=== PATIENT | male | born 1960 | race African-American/Black ===

== ENCOUNTER 2017-09-09 10:03 | Emergency (ER) | payer OTHER ==
[~2017-09-09] VITALS: Ht 180.3 cm; Wt 106.8 kg
[~2017-09-09 10:03] MED LIST: HIGH BLOOD PRESSURE PO; LEVE500T53 PO; PANT40TA25 PO; QUET200T PO
[2017-09-09] MEDS ORDERED: SODIUM CHLORIDE 0.9% 1,000 ML IV ONE (10:30)
[2017-09-09 10:52] LABS: GLUCOSE,POINT OF CARE 123 MG/DL (70-110)
[2017-09-09 12:12] LABS: BASOPHILS # (AUTO) 0.03 K/uL (0.00-0.20); BASOPHILS % (AUTO) 0.4 % (0.0-2.0); EOSINOPHILS # (AUTO) 0.36 K/uL (0.00-0.70); HEMATOCRIT 35.2 % (41-53); HEMOGLOBIN 11.7 g/dL (13.5-17.5); LYMPHOCYTES # (AUTO) 0.9 K/uL (1.0-4.8); LYMPHOCYTES % (AUTO) 13.1 % (22.0-44.0); MEAN CORPUSCULAR HEMOGLOBIN 26.3 pg (26.0-34.0); MEAN CORPUSCULAR HGB CONC 33.1 G/dL (31.0-37.0); MEAN CORPUSCULAR VOLUME 79 fL (80-100); MONOCYTES # (AUTO) 0.2 K/uL (0.1-1.0); MONOCYTES % (AUTO) 2.7 % (2.0-9.0); NEUTROPHILS # (AUTO) 5.2 K/uL (1.8-7.7); NEUTROPHILS % (AUTO) 78.4 % (40.0-70.0); RED BLOOD CELL COUNT(AUTO) 4.43 MIL/uL (4.50-5.90); RED CELL DISTRIBUTION WIDTH 19.2 % (11.5-14.5); WHITE BLOOD COUNT (AUTO) 6.6 K/uL (4.5-11.0)
[2017-09-09 12:15] LABS: ORIG DRAW (USER) PTC
[2017-09-09 12:20] LABS: ANION GAP 7 mmol/L (8-16); CALCIUM, TOTAL 8.9 mg/dL (8.8-10.5); CARBON DIOXIDE 26 mmol/L (22-29); CHLORIDE 102 mmol/L (98-107); CREATININE 0.82 mg/dL (0.60-1.30); GLOMERULAR FILTR. RATE CALC > 60 mL/min (>60); POTASSIUM 4.6 mmol/L (3.5-5.1); SODIUM SERUM 135 mmol/L (136-145); UREA NITROGEN, BLOOD 14 mg/dL (7-18)
[2017-09-09 12:26] LABS: ALANINE AMINOTRANSFERASE 11 U/L (12-78); ALBUMIN 3.5 g/dL (3.4-5.0); ASPARTATE AMINOTRANSFERASE 50 U/L (15-37); BILIRUBIN,TOTAL 0.1 mg/dL (0.1-1.0); TOTAL PROTEIN, SERUM 7.2 g/dL (6.4-8.2)
[2017-09-09 12:30] LABS: PLATELET COUNT (AUTO) 263 K/uL (150-450); RBC MORPHOLOGY COMMENT ABNORMAL RBC MORPH
[2017-09-09] MEDS ORDERED: LevETIRAcetam 250 MG TABLET PO ONE (13:45)
[2017-09-09] MEDS ORDERED: MAGNESIUM CHLORIDE 64 MG ER TABLET PO ONE (14:15)
[2017-09-09] MEDS ORDERED: ACETAMINOPHEN 325 MG TABLET PO ONE (14:15)
[2017-09-09 14:32] VITALS: BP 151/101
== END 2017-09-09 15:01 | disposition home or self-care (01) ==
LOC: EMS 10:03
DX: G40.909 Epilepsy, unspecified, not intractable, without status epilepticus (principal); I10 Essential (primary) hypertension; K21.9 Gastro-esophageal reflux disease without esophagitis; Z88.8 Allergy status to other drugs, medicaments and biological substances
CPT/HCPCS: 36415; 70450; 80053; 82948; 82962; 83690; 83735; 84484; 85025; 93005; 96360; 99285; J7030

== ENCOUNTER 2017-12-22 13:20 | Emergency (ER) | payer OTHER ==
[~2017-12-22] VITALS: Ht 175.3 cm; Wt 106.0 kg
[2017-12-22 14:39] LABS: BASOPHILS % (AUTO) 0.6 % (0.0-2.0); HEMATOCRIT 40.4 % (41-53); HEMOGLOBIN 13.5 g/dL (13.5-17.5); LYMPHOCYTES # (AUTO) 1.2 K/uL (1.0-4.8); LYMPHOCYTES % (AUTO) 21.4 % (22.0-44.0); MEAN CORPUSCULAR HEMOGLOBIN 26.5 pg (26.0-34.0); MEAN CORPUSCULAR HGB CONC 33.5 G/dL (31.0-37.0); MEAN CORPUSCULAR VOLUME 79 fL (80-100); MONOCYTES # (AUTO) 0.3 K/uL (0.1-1.0); MONOCYTES % (AUTO) 6.1 % (2.0-9.0); NEUTROPHILS # (AUTO) 3.6 K/uL (1.8-7.7); NEUTROPHILS % (AUTO) 64.9 % (40.0-70.0); PLATELET COUNT (AUTO) 304 K/uL (150-450); RED CELL DISTRIBUTION WIDTH 14.8 % (11.5-14.5)
[2017-12-22 14:48] LABS: ANION GAP 8 mmol/L (8-16); CALCIUM, TOTAL 9.1 mg/dL (8.8-10.5); CARBON DIOXIDE 29 mmol/L (22-29); CHLORIDE 100 mmol/L (98-107); CREATININE 1.34 mg/dL (0.60-1.30); GLOMERULAR FILTR. RATE CALC > 60 mL/min (>60); GLUCOSE,RANDOM 111 mg/dL (70-110); POTASSIUM 3.8 mmol/L (3.5-5.1); SODIUM SERUM 137 mmol/L (136-145); UREA NITROGEN, BLOOD 17 mg/dL (7-18)
[2017-12-22 14:54] LABS: ALANINE AMINOTRANSFERASE 13 U/L (12-78); ALBUMIN 3.8 g/dL (3.4-5.0); ALKALINE PHOSPHATASE 85 U/L (46-116); ASPARTATE AMINOTRANSFERASE 43 U/L (15-37); BILIRUBIN,TOTAL 0.2 mg/dL (0.1-1.0); LIPASE 79 U/L (73-393); TOTAL PROTEIN, SERUM 7.9 g/dL (6.4-8.2)
[2017-12-22] MEDS ORDERED: ALBUTEROL SULFATE 2.5 MG/0.5 ML NEB SOLUTION NEB ONE (15:00)
[2017-12-22] MEDS ORDERED: IPRATROPIUM BROMIDE 0.5 MG/2.5 ML NEB SOLUTION NEB ONE (15:00)
[2017-12-22 15:01] LABS: PLATELET MORPHOLOGY COMMENT NORMAL
[2017-12-22 16:01] LABS: INFLUENZA TYPE A NEGATIVE FOR TYPE A (NEGATIVE); INFLUENZA TYPE B NEGATIVE FOR TYPE B (NEGATIVE)
[2017-12-22] MEDS ORDERED: LIDOCAINE HCL/PF 1% 2 ML VIAL IM ONE (16:15)
[2017-12-22] MEDS ORDERED: CefTRIAXone SODIUM 1 GM/VIAL IM ONE (16:15)
[2017-12-22 16:56] VITALS: BP 124/76
== END 2017-12-22 16:59 | disposition home or self-care (01) ==
LOC: EMS 13:21
DX: J32.9 Chronic sinusitis, unspecified (principal); J40 Bronchitis, not specified as acute or chronic; J02.9 Acute pharyngitis, unspecified; K21.9 Gastro-esophageal reflux disease without esophagitis; I10 Essential (primary) hypertension; Z88.8 Allergy status to other drugs, medicaments and biological substances
CPT/HCPCS: 71046; 80053; 83690; 85025; 87804; 94640; 96372; 99285; J0696; J3490; J7613

== ENCOUNTER 2018-01-16 18:44 | Emergency (ER) | payer OTHER ==
[~2018-01-16] VITALS: Ht 180.3 cm; Wt 105.0 kg
[2018-01-16] MEDS ORDERED: ATOR20TA65 PO (18:58)
[2018-01-16] MEDS ORDERED: ASPI-1182 PO (18:58)
[2018-01-16] MEDS ORDERED: ALBU8HFA IH (18:58)
[2018-01-16] MEDS ORDERED: SPIR25TA4 PO (18:58)
[2018-01-16] MEDS ORDERED: FLUT16H NASAL (18:58)
[2018-01-16] MEDS ORDERED: TRAZ150 PO (18:58)
[2018-01-16] MEDS ORDERED: ALBUTEROL SULFATE 2.5 MG/0.5 ML NEB SOLUTION NEB ONE (19:15)
[2018-01-16] MEDS ORDERED: IPRATROPIUM BROMIDE 0.5 MG/2.5 ML NEB SOLUTION NEB ONE (19:15)
[2018-01-16] MEDS ORDERED: 0.9% SODIUM CHLORIDE 5 ML NEB SOLUTION NEB ONE (19:17)
[2018-01-16 19:37] LABS: INFLUENZA TYPE A NEGATIVE FOR TYPE A (NEGATIVE); INFLUENZA TYPE B NEGATIVE FOR TYPE B (NEGATIVE)
[2018-01-16 20:24] LABS: BASOPHILS % (AUTO) 0.5 % (0.0-2.0); EOSINOPHILS % (AUTO) 5.5 % (1.0-6.0); HEMOGLOBIN 12.6 g/dL (13.5-17.5); LYMPHOCYTES # (AUTO) 2.5 K/uL (1.0-4.8); LYMPHOCYTES % (AUTO) 31.4 % (22.0-44.0); MEAN CORPUSCULAR HEMOGLOBIN 26.8 pg (26.0-34.0); MEAN CORPUSCULAR HGB CONC 34.1 G/dL (31.0-37.0); MEAN CORPUSCULAR VOLUME 79 fL (80-100); MONOCYTES # (AUTO) 0.5 K/uL (0.1-1.0); MONOCYTES % (AUTO) 5.9 % (2.0-9.0); NEUTROPHILS # (AUTO) 4.6 K/uL (1.8-7.7); NEUTROPHILS % (AUTO) 56.7 % (40.0-70.0); PLATELET COUNT (AUTO) 294 K/uL (150-450); RED CELL DISTRIBUTION WIDTH 14.7 % (11.5-14.5)
[2018-01-16 20:32] LABS: ANION GAP 7 mmol/L (8-16); CARBON DIOXIDE 31 mmol/L (22-29); CHLORIDE 96 mmol/L (98-107); CREATININE 1.17 mg/dL (0.60-1.30); GLOMERULAR FILTR. RATE CALC > 60 mL/min (>60); GLUCOSE,RANDOM 116 mg/dL (70-110); POTASSIUM 3.5 mmol/L (3.5-5.1); SODIUM SERUM 134 mmol/L (136-145); UREA NITROGEN, BLOOD 20 mg/dL (7-18)
[2018-01-16 20:38] LABS: ALANINE AMINOTRANSFERASE 12 U/L (12-78); ALBUMIN 3.9 g/dL (3.4-5.0); ALKALINE PHOSPHATASE 83 U/L (46-116); ASPARTATE AMINOTRANSFERASE 45 U/L (15-37); BILIRUBIN,TOTAL 0.2 mg/dL (0.1-1.0); TOTAL PROTEIN, SERUM 7.6 g/dL (6.4-8.2)
[2018-01-16 20:42] LABS: B-TYPE NATRIURETIC PEPTIDE < 5 pg/mL (0-100)
[2018-01-16 21:15] VITALS: BP 117/80
[2018-01-16] MEDS ORDERED: ALBUTEROL SULFATE HFA 90 MCG/PUFF 8 GM INHALER IH ONE (21:30)
== END 2018-01-16 21:15 | disposition home or self-care (01) ==
LOC: EMS 18:45
DX: J45.901 Unspecified asthma with (acute) exacerbation (principal); J02.9 Acute pharyngitis, unspecified; J34.89 Other specified disorders of nose and nasal sinuses; K21.9 Gastro-esophageal reflux disease without esophagitis; I10 Essential (primary) hypertension; Z88.8 Allergy status to other drugs, medicaments and biological substances
CPT/HCPCS: 36415; 71046; 80053; 83880; 85025; 87804; 93005; 94640; 99285; J7613; J3535

== ENCOUNTER 2019-09-30 19:27 | Inpatient (IN) | payer OTHER ==
[~2019-09-30] VITALS: Ht 180.3 cm; Wt 107.0 kg
[~2019-09-30 19:27] MED LIST changes: +ALBU8HFA IH; +ASPI-1182 PO; +ATOR20TA65 PO; +FLUT16H NASAL; -HIGH BLOOD PRESSURE PO; +SPIR25TA6 PO; +TRAZ150 PO
[2019-09-30] MEDS ORDERED: NALOXONE HCL 1 MG/ML 2 ML SYG ONE (19:39)
[2019-09-30] MEDS ORDERED: LOSA1TAB40 PO (19:57)
[2019-09-30] MEDS ORDERED: ATEN50TA PO (19:57)
[2019-09-30] MEDS ORDERED: TAMS-13 PO (19:57)
[2019-09-30] MEDS ORDERED: LORA10TA7 PO (19:57)
[2019-09-30] MEDS ORDERED: MIRT15 PO (19:57)
[2019-09-30] MEDS ORDERED: OMEP20 PO (19:57)
[2019-09-30] MEDS ORDERED: SODIUM CHLORIDE 0.9% 1,000 ML IV ONE (20:00)
[2019-09-30] MEDS ORDERED: ONDANSETRON HCL 4 MG/2 ML VIAL IVP ONE (20:00)
[2019-09-30] MEDS ORDERED: NALOXONE HCL 1 MG/ML 2 ML SYG IVP ONE (20:00)
[2019-09-30 20:18] LABS: APPEARANCE,URINE CLEAR (CLEAR); BILIRUBIN,URINE NEGATIVE (NEGATIVE); GLUCOSE, URINE (UA) NEGATIVE (NEGATIVE); KETONES,URINE NEGATIVE (NEGATIVE); LEUKOCYTE ESTERASE ,URINE NEGATIVE (NEGATIVE); NITRATE,URINE NEGATIVE (NEGATIVE); OCCULT BLOOD,URINE NEGATIVE (NEGATIVE); PROTEIN,URINE TRACE (NEGATIVE)
[2019-09-30 20:28] LABS: BASOPHILS % (AUTO) 0.8 % (0.0-2.0); EOSINOPHILS % (AUTO) 2.3 % (1.0-6.0); HEMATOCRIT 37.9 % (41-53); LYMPHOCYTES # (AUTO) 1.7 K/uL (1.0-4.8); LYMPHOCYTES % (AUTO) 20.4 % (22.0-44.0); MEAN CORPUSCULAR HEMOGLOBIN 29.3 pg (26.0-34.0); MEAN CORPUSCULAR HGB CONC 34.2 G/dL (31.0-37.0); MEAN CORPUSCULAR VOLUME 86 fL (80-100); MONOCYTES # (AUTO) 0.3 K/uL (0.1-1.0); MONOCYTES % (AUTO) 3.1 % (2.0-9.0); NEUTROPHILS % (AUTO) 73.4 % (40.0-70.0); RED BLOOD CELL COUNT(AUTO) 4.42 MIL/uL (4.50-5.90); RED CELL DISTRIBUTION WIDTH 15.7 % (11.5-14.5)
[2019-09-30 20:34] LABS: ANION GAP 13 mmol/L (8-16); CALCIUM, TOTAL 8.2 mg/dL (8.8-10.5); CARBON DIOXIDE 25 mmol/L (22-29); CHLORIDE 101 mmol/L (98-107); CREATININE 0.95 mg/dL (0.60-1.30); GLOMERULAR FILTR. RATE CALC > 60 mL/min (>60); GLUCOSE,RANDOM 93 mg/dL (70-110); POTASSIUM 4.3 mmol/L (3.5-5.1); SODIUM SERUM 139 mmol/L (136-145); UREA NITROGEN, BLOOD 12 mg/dL (7-18)
[2019-09-30 20:38] LABS: PLATELET COUNT (AUTO) 362 K/uL (150-450)
[2019-09-30 20:41] LABS: AMMONIA 33 umol/L (11-32)
[2019-09-30 20:42] LABS: TROPONIN I < 0.02 ng/mL (0.00-0.05)
[2019-09-30] MEDS ORDERED: SODIUM CHLORIDE 0.9% 3,150 ML IV ONE (20:49)
[2019-09-30 20:58] LABS: ALANINE AMINOTRANSFERASE 16 U/L (12-78); ALBUMIN 3.5 g/dL (3.4-5.0); ALKALINE PHOSPHATASE 88 U/L (46-116); ASPARTATE AMINOTRANSFERASE 61 U/L (15-37); BILIRUBIN,TOTAL 0.2 mg/dL (0.1-1.0); CREATINE KINASE, TOTAL ONLY 330 U/L (39-308); TOTAL PROTEIN, SERUM 7.8 g/dL (6.4-8.2)
[2019-09-30 21:03] LABS: ABG BASE EXCESS -4.8 mmol/L (-2.0-3.0); ABG CARBOXYHEMOGLOBIN 0.6 % (0.0-1.5); ABG HCO3 20.4 mmol/L (22.0-26.0); ABG METHEMOGLOBIN 0.3 % (0.0-1.5); ABG OXYGEN CONTENT 17.4 mL/dL (15.0-23.0); ABG OXYGEN SATURATION 94.3 % (95.0-98.0); ABG OXYHEMOGLOBIN 93.5 % (94.0-100.0); ABG PCO2 44 mmHg (35-45); ABG PH 7.304 (7.35-7.450); ABG TOTAL HEMOGLOBIN 13.2 G/dL (12.0-18.0); PO2, ARTERIAL BG 82.3 mmHg (79.0-87.0); SOURCE, BLOOD GAS ARTERIAL; TEMPERATURE, FAHRENHEIT, BG 96.5 FAHREN (96.0-98.6)
[2019-09-30 21:04] LABS: SITE, BLOOD GAS RT BRACHIAL
[2019-09-30 21:05] LABS: O2 DEVICE,BLOOD GAS CANNULA (ROOM AIR)
[2019-09-30 21:11] LABS: AMPHET/METH SCREEN,URINE NEGATIVE (NEGATIVE); BARBITURATE SCREEN, URINE NEGATIVE (NEGATIVE); BENZODIAZEPINES SCREEN,URINE NEGATIVE (NEGATIVE); CANNABINOID SCREEN,URINE NEGATIVE (NEGATIVE); COCAINE SCREEN,URINE NEGATIVE (NEGATIVE); METHADONE SCREEN, URINE NEGATIVE (NEGATIVE); OPIATE SCREEN,URINE NEGATIVE (NEGATIVE); PHENCYCLIDINE SCREEN,URINE NEGATIVE (NEGATIVE)
[2019-09-30] MEDS ORDERED: ONDANSETRON HCL 4 MG/2 ML VIAL IVP PRN (22:45)
[2019-09-30] MEDS ORDERED: 0.9% SODIUM CHLORIDE 10 ML SYRINGE IVP PRN (22:45)
[2019-09-30] MEDS ORDERED: ACETAMINOPHEN 325 MG TABLET PO PRN (22:45)
[2019-10-01 00:50] VITALS: BP 127/90
[2019-10-01 04:15] VITALS: BP 118/89
[2019-10-01 06:56] LABS: BASOPHILS % (AUTO) 0.6 % (0.0-2.0); EOSINOPHILS % (AUTO) 2.3 % (1.0-6.0); HEMATOCRIT 35.3 % (41-53); HEMOGLOBIN 11.9 g/dL (13.5-17.5); LYMPHOCYTES # (AUTO) 1.3 K/uL (1.0-4.8); LYMPHOCYTES % (AUTO) 19.4 % (22.0-44.0); MEAN CORPUSCULAR HEMOGLOBIN 29.2 pg (26.0-34.0); MEAN CORPUSCULAR HGB CONC 33.8 G/dL (31.0-37.0); MEAN CORPUSCULAR VOLUME 86 fL (80-100); MONOCYTES # (AUTO) 0.3 K/uL (0.1-1.0); MONOCYTES % (AUTO) 4.2 % (2.0-9.0); NEUTROPHILS # (AUTO) 5.1 K/uL (1.8-7.7); NEUTROPHILS % (AUTO) 73.5 % (40.0-70.0); PLATELET COUNT (AUTO) 329 K/uL (150-450); RED BLOOD CELL COUNT(AUTO) 4.09 MIL/uL (4.50-5.90)
[2019-10-01 07:31] LABS: ALANINE AMINOTRANSFERASE 21 U/L (12-78); ALKALINE PHOSPHATASE 79 U/L (46-116); ANION GAP 12 mmol/L (8-16); ASPARTATE AMINOTRANSFERASE 59 U/L (15-37); BILIRUBIN,TOTAL 0.1 mg/dL (0.1-1.0); CALCIUM, TOTAL 7.4 mg/dL (8.8-10.5); CARBON DIOXIDE 25 mmol/L (22-29); CHLORIDE 104 mmol/L (98-107); CREATININE 0.92 mg/dL (0.60-1.30); GLOMERULAR FILTR. RATE CALC > 60 mL/min (>60); GLUCOSE,RANDOM 64 mg/dL (70-110); POTASSIUM 3.9 mmol/L (3.5-5.1); SODIUM SERUM 141 mmol/L (136-145); TOTAL PROTEIN, SERUM 6.8 g/dL (6.4-8.2); UREA NITROGEN, BLOOD 14 mg/dL (7-18)
[2019-10-01 07:45] VITALS: BP 107/66
[2019-10-01 11:26] VITALS: BP 118/73
[2019-10-01 15:20] VITALS: BP 134/90
== END 2019-10-01 18:55 | disposition home or self-care (01) | DRG 42 ==
LOC: EMS 19:27 → 5S 23:26
PROVIDERS: ADMIT Hospitalist; ATTEND Hospitalist
DX: G31.2 Degeneration of nervous system due to alcohol (principal); F20.9 Schizophrenia, unspecified; F10.10 Alcohol abuse, uncomplicated; Y90.9 Presence of alcohol in blood, level not specified; I12.9 Hypertensive chronic kidney disease with stage 1 through stage 4 chronic kidney disease, or unspecified chronic kidney disease; K21.9 Gastro-esophageal reflux disease without esophagitis; N18.9 Chronic kidney disease, unspecified; Y90.8 Blood alcohol level of 240 mg/100 ml or more; Z87.891 Personal history of nicotine dependence
CPT/HCPCS: 51702; 70450; 82805; 83605; 87040; 93005; 96374; 96375; 99291; G0480; J2310; J2405; J7030

== ENCOUNTER 2019-11-30 14:24 | Emergency (ER) | payer OTHER ==
[~2019-11-30] VITALS: Ht 180.3 cm; Wt 110.5 kg
[~2019-11-30 14:24] MED LIST changes: -ALBU8HFA IH; +ASPI-1111 PO; -ASPI-1182 PO; +ATEN50TA PO; -FLUT16H NASAL; +LORA10TA7 PO; +LOSA1TAB40 PO; +MIRT-92 PO; +OMEP20 PO; -PANT40TA25 PO; +TAMS-13 PO
[2019-11-30 16:28] VITALS: BP 143/91
[2019-11-30] MEDS ORDERED: KETOROLAC TROMETHAMINE 30 MG/ML VIAL IM ONE (16:45)
[2019-11-30] MEDS ORDERED: CYCLOBENZAPRINE HCL 10 MG TABLET PO ONE (16:45)
== END 2019-11-30 16:52 | disposition home or self-care (01) ==
LOC: EMS 14:28
DX: M54.42 Lumbago with sciatica, left side (principal); I12.9 Hypertensive chronic kidney disease with stage 1 through stage 4 chronic kidney disease, or unspecified chronic kidney disease; N18.9 Chronic kidney disease, unspecified; K21.9 Gastro-esophageal reflux disease without esophagitis; F20.9 Schizophrenia, unspecified; F10.20 Alcohol dependence, uncomplicated; F17.210 Nicotine dependence, cigarettes, uncomplicated; Z79.899 Other long term (current) drug therapy; Z79.82 Long term (current) use of aspirin; Z88.8 Allergy status to other drugs, medicaments and biological substances
CPT/HCPCS: 96372; 99283; J1885

== ENCOUNTER 2020-05-16 02:02 | Emergency (ER) | payer OTHER ==
[~2020-05-16] VITALS: Ht 180.3 cm; Wt 109.1 kg
[~2020-05-16 02:02] MED LIST changes: +ATEN-72 PO; -ATEN50TA PO; +MIRT-89 PO; -MIRT-92 PO
[2020-05-16 03:42] LABS: BASOPHILS % (AUTO) 0.2 % (0.0-2.0); EOSINOPHILS % (AUTO) 3.7 % (1.0-6.0); HEMATOCRIT 34.1 % (41-53); HEMOGLOBIN 11.5 g/dL (13.5-17.5); LYMPHOCYTES % (AUTO) 18.6 % (22.0-44.0); MEAN CORPUSCULAR HEMOGLOBIN 28.4 pg (26.0-34.0); MEAN CORPUSCULAR HGB CONC 33.6 G/dL (31.0-37.0); MEAN CORPUSCULAR VOLUME 84 fL (80-100); MONOCYTES # (AUTO) 0.5 K/uL (0.1-1.0); MONOCYTES % (AUTO) 8.2 % (2.0-9.0); NEUTROPHILS # (AUTO) 3.8 K/uL (1.8-7.7); NEUTROPHILS % (AUTO) 69.3 % (40.0-70.0); PLATELET COUNT (AUTO) 187 K/uL (150-450); RED BLOOD CELL COUNT(AUTO) 4.04 MIL/uL (4.50-5.90); RED CELL DISTRIBUTION WIDTH 15.5 % (11.5-14.5)
[2020-05-16 04:02] LABS: B-TYPE NATRIURETIC PEPTIDE 16 pg/mL (0-100)
[2020-05-16 04:03] LABS: ALANINE AMINOTRANSFERASE 47 U/L (12-78); ALBUMIN 2.9 g/dL (3.4-5.0); ALKALINE PHOSPHATASE 64 U/L (46-116); ASPARTATE AMINOTRANSFERASE 72 U/L (15-37); BILIRUBIN,TOTAL 0.3 mg/dL (0.1-1.0); CREATINE KINASE, TOTAL ONLY 328 U/L (39-308); LIPASE 39 U/L (73-393); TOTAL PROTEIN, SERUM 6.7 g/dL (6.4-8.2); UREA NITROGEN, BLOOD 7 mg/dL (7-18)
[2020-05-16 04:11] LABS: ANION GAP 13 mmol/L (8-16); CALCIUM, TOTAL 8.5 mg/dL (8.8-10.5); CARBON DIOXIDE 25 mmol/L (22-29); CHLORIDE 103 mmol/L (98-107); CREATININE 0.94 mg/dL (0.60-1.30); GLOMERULAR FILTR. RATE CALC > 60 mL/min (>60); GLUCOSE,RANDOM 118 mg/dL (70-110); POTASSIUM 3.1 mmol/L (3.5-5.1); SODIUM SERUM 141 mmol/L (136-145)
[2020-05-16 04:27] LABS: PROTHROMBIN TIME 10.9 SEC (9.4-11.6)
[2020-05-16 05:34] VITALS: BP 151/86
[2020-05-16] MEDS ORDERED: POTASSIUM CHLORIDE 10% 40 MEQ/30 ML LIQUID UDCUP PO ONE (06:00)
== END 2020-05-16 06:51 | disposition home or self-care (01) ==
LOC: EMS 02:03
DX: E87.6 Hypokalemia (principal); R07.89 Other chest pain; F10.229 Alcohol dependence with intoxication, unspecified; I10 Essential (primary) hypertension; F20.9 Schizophrenia, unspecified; K21.9 Gastro-esophageal reflux disease without esophagitis; F17.210 Nicotine dependence, cigarettes, uncomplicated; Y90.2 Blood alcohol level of 40-59 mg/100 ml; Z88.8 Allergy status to other drugs, medicaments and biological substances; Z79.899 Other long term (current) drug therapy; Z79.82 Long term (current) use of aspirin
CPT/HCPCS: 36415; 71045; 80053; 82550; 83690; 83880; 84484; 85025; 85610; 85730; 93005; 99285; 99406; G0480

== ENCOUNTER 2023-02-20 14:44 | Inpatient (IN) | payer OTHER ==
[~2023-02-20] VITALS: Ht 180.3 cm; Wt 92.0 kg
[~2023-02-20 14:44] MED LIST changes: -ASPI-1111 PO; +ASPI-1444 PO; +LEVE500T20 PO; -LEVE500T53 PO; +TRAZ-283 PO; -TRAZ150 PO
[2023-02-20] MEDS ORDERED: SODIUM CHLORIDE 0.9% 1,000 ML IV ONE (15:30)
[2023-02-20 16:28] LABS: EOSINOPHILS % (AUTO) 5.5 % (1.0-6.0); HEMOGLOBIN 12.5 g/dL (13.5-17.5); LYMPHOCYTES # (AUTO) 1.2 K/uL (1.0-4.8); LYMPHOCYTES % (AUTO) 27.1 % (22.0-44.0); MEAN CORPUSCULAR HEMOGLOBIN 27.9 pg (26.0-34.0); MEAN CORPUSCULAR HGB CONC 32.1 G/dL (31.0-37.0); MEAN CORPUSCULAR VOLUME 87 fL (80-100); MONOCYTES # (AUTO) 0.4 K/uL (0.1-1.0); NEUTROPHILS # (AUTO) 2.6 K/uL (1.8-7.7); NEUTROPHILS % (AUTO) 57.4 % (40.0-70.0); PLATELET COUNT (AUTO) 289 K/uL (150-450); RED BLOOD CELL COUNT(AUTO) 4.48 MIL/uL (4.50-5.90); RED CELL DISTRIBUTION WIDTH 17.4 % (11.5-14.5)
[2023-02-20 16:44] LABS: ANION GAP 7 mmol/L (8-16); CALCIUM, TOTAL 9.4 mg/dL (8.8-10.5); CARBON DIOXIDE 29 mmol/L (22-29); CHLORIDE 104 mmol/L (98-107); CREATININE 0.82 mg/dL (0.60-1.30); GLOMERULAR FILTR. RATE CALC > 60 mL/min (>60); GLUCOSE,RANDOM 90 mg/dL (70-110); POTASSIUM 4.1 mmol/L (3.5-5.1); SODIUM SERUM 140 mmol/L (136-145); UREA NITROGEN, BLOOD 17 mg/dL (7-18)
[2023-02-20 16:51] LABS: ALANINE AMINOTRANSFERASE 11 U/L (12-78); ALBUMIN 3.5 g/dL (3.4-5.0); ALKALINE PHOSPHATASE 68 U/L (46-116); ASPARTATE AMINOTRANSFERASE 32 U/L (15-37); BILIRUBIN,TOTAL 0.4 mg/dL (0.1-1.0); TOTAL PROTEIN, SERUM 7.8 g/dL (6.4-8.2)
[2023-02-20 16:58] LABS: D-DIMER 0.87 mg/L FEU (0.00-0.50); PROTHROMBIN TIME 10.9 SEC (9.4-11.6)
[2023-02-20 17:03] LABS: B-TYPE NATRIURETIC PEPTIDE < 5 pg/mL (0-100)
[2023-02-20] MEDS ORDERED: IOHEXOL 350 MG/ML 100 ML VIAL ONE (17:28)
[2023-02-20] MEDS ORDERED: SODIUM CHLORIDE 0.9% 100 ML ONE (17:28)
[2023-02-20 17:45] LABS: APPEARANCE,URINE CLEAR (CLEAR); BILIRUBIN,URINE NEGATIVE (NEGATIVE); GLUCOSE, URINE (UA) NEGATIVE (NEGATIVE); KETONES,URINE NEGATIVE (NEGATIVE); LEUKOCYTE ESTERASE ,URINE NEGATIVE (NEGATIVE); NITRATE,URINE NEGATIVE (NEGATIVE); OCCULT BLOOD,URINE NEGATIVE (NEGATIVE); PH,URINE 5.5 (5.0-8.0); PROTEIN,URINE TRACE mg/dL (NEGATIVE); SPECIFIC GRAVITIY, URINE 1.033 (1.003-1.030)
[2023-02-20 17:49] LABS: AMPHET/METH SCREEN,URINE NEGATIVE (NEGATIVE); BARBITURATE SCREEN, URINE NEGATIVE (NEGATIVE); BENZODIAZEPINES SCREEN,URINE NEGATIVE (NEGATIVE); CANNABINOID SCREEN,URINE NEGATIVE (NEGATIVE); COCAINE SCREEN,URINE NEGATIVE (NEGATIVE); METHADONE SCREEN, URINE NEGATIVE (NEGATIVE); OPIATE SCREEN,URINE NEGATIVE (NEGATIVE); PHENCYCLIDINE SCREEN,URINE NEGATIVE (NEGATIVE)
[2023-02-20] MEDS ORDERED: ALBUTEROL SULFATE 2.5 MG/0.5 ML NEB SOLUTION NEB PRN (22:15)
[2023-02-20] MEDS ORDERED: ATORVASTATIN CALCIUM 40 MG TABLET PO ONE (22:15)
[2023-02-20] MEDS ORDERED: IPRATROPIUM BROMIDE 0.5 MG/2.5 ML NEB SOLUTION NEB PRN (22:15)
[2023-02-20] MEDS ORDERED: LORazepam 2 MG TABLET PO PRN (22:15)
[2023-02-20] MEDS ORDERED: ASPIRIN 81 MG CHEWABLE TABLET PO ONE (22:15)
[2023-02-20] MEDS ORDERED: ONDANSETRON HCL 4 MG/2 ML VIAL IVP PRN (22:15)
[2023-02-20] MEDS ORDERED: ACETAMINOPHEN 325 MG TABLET PO PRN (22:15)
[2023-02-20] MEDS ORDERED: PIPERACILLIN/TAZO 3.375 GM/D5W 50 ML IV SCH (23:00)
[2023-02-20] MEDS ORDERED: 1: MAGNESIUM SULFATE 2 GM, MVI, ADULT NO.1 WITH VIT K 10 ML, THIAMINE 100 MG, FOLIC ACID IV SCH ×5 (23:00)
[2023-02-20 23:15] LABS: COVID AG,FIA SOURCE NASOPHARYNGEAL
[2023-02-21] MEDS: HEPARIN SODIUM,PORCINE 5,000 UNITS/ML VIAL SQ SCH ×3 (00:14→16:00)
[2023-02-21] MEDS: CefTRIAXone 1 GM/DEXTROSE 50 ML IV SCH (02:50)
[2023-02-21] MEDS: AZITHROMYCIN 500 MG/NS 250 ML IV SCH (02:50)
[2023-02-21] MEDS ORDERED: LORazepam 2 MG TABLET PO PRN (07:00)
[2023-02-21] MEDS ORDERED: LORazepam 2 MG/ML VIAL IVP PRN (08:00)
[2023-02-21] MEDS: ASPIRIN 81 MG CHEWABLE TABLET PO SCH (08:48)
[2023-02-21] MEDS ORDERED: LevETIRAcetam 500 MG TABLET PO SCH (09:00)
[2023-02-21] MEDS ORDERED: TraZODone HCL 150 MG TABLET PO SCH (09:00)
[2023-02-21] MEDS ORDERED: LORazepam 2 MG TABLET PO SCH (09:00)
[2023-02-21] MEDS ORDERED: LORATADINE 10 MG TABLET PO SCH (09:00)
[2023-02-21] MEDS ORDERED: ASPIRIN 81 MG DR TABLET PO SCH (09:00)
[2023-02-21] MEDS: ATORVASTATIN CALCIUM 40 MG TABLET PO SCH (09:46)
[2023-02-21] MEDS: TAMSULOSIN HCL 0.4 MG CAPSULE PO SCH (09:47)
[2023-02-21] MEDS: DOCUSATE SODIUM 100 MG CAPSULE PO SCH ×2 (09:47→21:00)
[2023-02-21 11:27] VITALS: BP 123/88
[2023-02-21] MEDS ORDERED: FLUT16SP NASAL (11:45)
[2023-02-21] MEDS ORDERED: APIX5TAB PO (11:45)
[2023-02-21] MEDS ORDERED: RISP2TAB45 PO (11:45)
[2023-02-21] MEDS ORDERED: GABA-1181 PO (11:45)
[2023-02-21] MEDS ORDERED: PANT40TA54 PO (11:45)
[2023-02-21] MEDS ORDERED: QUET300T19 PO (11:45)
[2023-02-21] MEDS ORDERED: BENZ2TAB76 PO (11:45)
[2023-02-21] MEDS ORDERED: TRAZ-257 PO (11:45)
[2023-02-21] MEDS ORDERED: LEVE750T10 PO (11:45)
[2023-02-21] MEDS ORDERED: FERR325T27 PO (11:45)
[2023-02-21] MEDS ORDERED: AMLO5TAB66 PO (11:45)
[2023-02-21] MEDS ORDERED: DIVA-111 PO (11:45)
[2023-02-21] MEDS: OMEPRAZOLE 20 MG CAPSULE PO SCH (12:25)
[2023-02-21] MEDS: SPIRONOLACTONE 25 MG TABLET PO SCH (12:25)
[2023-02-21] MEDS: ATENOLOL 50 MG TABLET PO SCH (12:26)
[2023-02-21 12:53] VITALS: BP 123/88
[2023-02-21 15:03] VITALS: BP 122/83
[2023-02-21 20:03] VITALS: BP 111/80
[2023-02-21] MEDS ORDERED: ATORVASTATIN CALCIUM 20 MG TABLET PO SCH (21:00)
[2023-02-21] MEDS ORDERED: QUEtiapine FUMARATE 200 MG TABLET PO SCH (21:00)
[2023-02-21] MEDS: MIRTAZAPINE 15 MG TABLET PO SCH (21:13)
[2023-02-21] MEDS: APIXABAN 5 MG TABLET PO SCH (21:15)
[2023-02-21] MEDS: LevETIRAcetam 250 MG TABLET PO SCH (21:15)
[2023-02-22] VITALS (7 sets, daily range): BP systolic 104–119; BP diastolic 59–77
[2023-02-22] MEDS ORDERED: SODIUM CHLORIDE 0.9% 500 ML IV ONE (00:09)
[2023-02-22] MEDS: AZITHROMYCIN 500 MG/NS 250 ML IV SCH (00:21)
[2023-02-22] MEDS: CefTRIAXone 1 GM/DEXTROSE 50 ML IV SCH (04:53)
[2023-02-22 06:48] LABS: BASOPHILS % (AUTO) 1.6 % (0.0-2.0); EOSINOPHILS % (AUTO) 11.6 % (1.0-6.0); HEMATOCRIT 36.6 % (41-53); HEMOGLOBIN 12.1 g/dL (13.5-17.5); LYMPHOCYTES # (AUTO) 1.1 K/uL (1.0-4.8); LYMPHOCYTES % (AUTO) 34.4 % (22.0-44.0); MEAN CORPUSCULAR HEMOGLOBIN 28.3 pg (26.0-34.0); MEAN CORPUSCULAR VOLUME 86 fL (80-100); MONOCYTES # (AUTO) 0.4 K/uL (0.1-1.0); MONOCYTES % (AUTO) 10.8 % (2.0-9.0); NEUTROPHILS # (AUTO) 1.4 K/uL (1.8-7.7); NEUTROPHILS % (AUTO) 41.6 % (40.0-70.0); PLATELET COUNT (AUTO) 274 K/uL (150-450); RED BLOOD CELL COUNT(AUTO) 4.26 MIL/uL (4.50-5.90); RED CELL DISTRIBUTION WIDTH 16.9 % (11.5-14.5)
[2023-02-22 06:59] LABS: ANION GAP 10 mmol/L (8-16); CALCIUM, TOTAL 8.8 mg/dL (8.8-10.5); CARBON DIOXIDE 24 mmol/L (22-29); CHLORIDE 103 mmol/L (98-107); GLOMERULAR FILTR. RATE CALC > 60 mL/min (>60); GLUCOSE,RANDOM 100 mg/dL (70-110); POTASSIUM 3.5 mmol/L (3.5-5.1); SODIUM SERUM 137 mmol/L (136-145); UREA NITROGEN, BLOOD 11 mg/dL (7-18)
[2023-02-22] MEDS: LevETIRAcetam 250 MG TABLET PO SCH ×2 (08:58→20:43)
[2023-02-22] MEDS: TAMSULOSIN HCL 0.4 MG CAPSULE PO SCH (08:58)
[2023-02-22] MEDS: OMEPRAZOLE 20 MG CAPSULE PO SCH (09:00)
[2023-02-22] MEDS: SPIRONOLACTONE 25 MG TABLET PO SCH (09:01)
[2023-02-22] MEDS: ATORVASTATIN CALCIUM 40 MG TABLET PO SCH (09:01)
[2023-02-22] MEDS: APIXABAN 5 MG TABLET PO SCH ×2 (09:01→20:43)
[2023-02-22] MEDS: ASPIRIN 81 MG CHEWABLE TABLET PO SCH (09:01)
[2023-02-22] MEDS: ATENOLOL 50 MG TABLET PO SCH (09:06)
[2023-02-22] MEDS: DOCUSATE SODIUM 100 MG CAPSULE PO SCH ×2 (09:06→20:43)
[2023-02-22] MEDS: CARBIDOPA/LEVODOPA 25-100 MG TABLET PO SCH ×2 (09:46→20:43)
[2023-02-22] MEDS: MIRTAZAPINE 15 MG TABLET PO SCH (21:29)
[2023-02-23] MEDS: AZITHROMYCIN 500 MG/NS 250 ML IV SCH (00:33)
[2023-02-23] MEDS: CefTRIAXone 1 GM/DEXTROSE 50 ML IV SCH (04:45)
[2023-02-23 04:57] VITALS: BP 96/58
[2023-02-23] MEDS ORDERED: LORazepam 1 MG TABLET PO PRN (07:00)
[2023-02-23] MEDS ORDERED: ATENOLOL 25 MG TABLET PO SCH (09:00)
[2023-02-23] MEDS ORDERED: LORazepam 1 MG TABLET PO SCH (09:00)
[2023-02-23] MEDS: DOCUSATE SODIUM 100 MG CAPSULE PO SCH ×2 (09:00→20:51)
[2023-02-23] MEDS ORDERED: MAGNESIUM OXIDE 400 MG TABLET PO ONE (09:00)
[2023-02-23] MEDS: ASPIRIN 81 MG CHEWABLE TABLET PO SCH (10:19)
[2023-02-23] MEDS: OMEPRAZOLE 20 MG CAPSULE PO SCH (10:20)
[2023-02-23] MEDS: TAMSULOSIN HCL 0.4 MG CAPSULE PO SCH (10:20)
[2023-02-23] MEDS: SPIRONOLACTONE 25 MG TABLET PO SCH (10:20)
[2023-02-23] MEDS: APIXABAN 5 MG TABLET PO SCH ×2 (10:20→20:51)
[2023-02-23] MEDS: LevETIRAcetam 250 MG TABLET PO SCH ×2 (10:21→20:52)
[2023-02-23] MEDS: CARBIDOPA/LEVODOPA 25-100 MG TABLET PO SCH ×2 (10:22→20:52)
[2023-02-23] MEDS: ATORVASTATIN CALCIUM 40 MG TABLET PO SCH (10:22)
[2023-02-23 11:47] VITALS: BP 115/78
[2023-02-23 20:08] VITALS: BP 101/69
[2023-02-24] MEDS: AZITHROMYCIN 500 MG/NS 250 ML IV SCH (00:12)
[2023-02-24 00:31] VITALS: BP 119/90
[2023-02-24] MEDS: CefTRIAXone 1 GM/DEXTROSE 50 ML IV SCH (04:09)
[2023-02-24 04:42] VITALS: BP 97/62
[2023-02-24] MEDS ORDERED: LORazepam 1 MG TABLET PO PRN (07:00)
[2023-02-24 07:12] VITALS: BP 97/74
[2023-02-24] MEDS: ASPIRIN 81 MG CHEWABLE TABLET PO SCH (08:17)
[2023-02-24] MEDS: LevETIRAcetam 250 MG TABLET PO SCH (08:17)
[2023-02-24] MEDS: ATORVASTATIN CALCIUM 40 MG TABLET PO SCH (08:17)
[2023-02-24] MEDS: DOCUSATE SODIUM 100 MG CAPSULE PO SCH (08:18)
[2023-02-24] MEDS: SPIRONOLACTONE 25 MG TABLET PO SCH (08:18)
[2023-02-24] MEDS: APIXABAN 5 MG TABLET PO SCH (08:18)
[2023-02-24] MEDS: OMEPRAZOLE 20 MG CAPSULE PO SCH (08:18)
[2023-02-24] MEDS: TAMSULOSIN HCL 0.4 MG CAPSULE PO SCH (08:18)
[2023-02-24] MEDS: CARBIDOPA/LEVODOPA 25-100 MG TABLET PO SCH (08:18)
[2023-02-24] MEDS ORDERED: METOPROLOL SUCCINATE 25 MG ER TABLET PO SCH (09:00)
[2023-02-24 12:01] VITALS: BP 107/59
== END 2023-02-24 16:40 | disposition home health service (06) | DRG 139 ==
LOC: EMS 14:44 → 5S 02-21 08:09
PROVIDERS: ADMIT Internal Medicine; ATTEND Internal Medicine
DX: J18.9 Pneumonia, unspecified organism (principal); J96.00 Acute respiratory failure, unspecified whether with hypoxia or hypercapnia; I21.A1 Myocardial infarction type 2; G93.41 Metabolic encephalopathy; I31.39 Other pericardial effusion (noninflammatory); I13.0 Hypertensive heart and chronic kidney disease with heart failure and stage 1 through stage 4 chronic kidney disease, or unspecified chronic kidney disease; I42.9 Cardiomyopathy, unspecified; G20 Parkinson's disease; Z20.822 Contact with and (suspected) exposure to COVID-19; R77.8 Other specified abnormalities of plasma proteins; G40.909 Epilepsy, unspecified, not intractable, without status epilepticus; F10.239 Alcohol dependence with withdrawal, unspecified; F20.9 Schizophrenia, unspecified; N18.9 Chronic kidney disease, unspecified; K21.9 Gastro-esophageal reflux disease without esophagitis; N40.0 Benign prostatic hyperplasia without lower urinary tract symptoms; Y90.9 Presence of alcohol in blood, level not specified; I50.22 Chronic systolic (congestive) heart failure; Z87.891 Personal history of nicotine dependence; Z88.8 Allergy status to other drugs, medicaments and biological substances
CPT/HCPCS: 71045; 71275; 80048; 80053; 80307; 81003; 83735; 83880; 84484; 85025; 85379; 85610; 85730; 87040; 92526; 93005; 93306; 97116; 97162; 97166; 97530; 97535; 99285; J0456; J0696; J1644; J2405; J2543; J3411; J3475; J3490; J7030; J7040; J7050; Q9967; 36415-L1; 36415-TC

== ENCOUNTER 2024-12-04 17:00 | Emergency (ER) | payer MEDICARE, OTHER ==
[~2024-12-04] VITALS: Ht 175.3 cm; Wt 88.6 kg
[~2024-12-04 17:00] MED LIST changes: +BENZ2TAB84 PO; +DIVA-111 PO; -LEVE500T20 PO; +LEVE750T10 PO; -LORA10TA7 PO; -LOSA1TAB40 PO; -MIRT-89 PO; -OMEP20 PO; +PANT40TA54 PO; -QUET200T PO; -TAMS-13 PO; +TAMS0.4C94 PO; -TRAZ-283 PO
[2024-12-04 18:08] VITALS: TEMP 97.8
[2024-12-04 18:58] LABS: BASOPHILS % (AUTO) 0.6 % (0.0-2.0); EOSINOPHILS % (AUTO) 13.9 % (1.0-6.0); HEMATOCRIT 36.6 % (41-53); LYMPHOCYTES # (AUTO) 1.2 K/uL (1.0-4.8); LYMPHOCYTES % (AUTO) 26.8 % (22.0-44.0); MEAN CORPUSCULAR HEMOGLOBIN 28.9 pg (26.0-34.0); MEAN CORPUSCULAR HGB CONC 32.7 G/dL (31.0-37.0); MEAN CORPUSCULAR VOLUME 89 fL (80-100); MONOCYTES # (AUTO) 0.4 K/uL (0.1-1.0); NEUTROPHILS # (AUTO) 2.2 K/uL (1.8-7.7); NEUTROPHILS % (AUTO) 49.7 % (40.0-70.0); PLATELET COUNT (AUTO) 304 K/uL (150-450); RED BLOOD CELL COUNT(AUTO) 4.13 MIL/uL (4.50-5.90); RED CELL DISTRIBUTION WIDTH 17.6 % (11.5-14.5); WHITE BLOOD COUNT (AUTO) 4.4 K/uL (4.5-11.0)
[2024-12-04 19:06] LABS: ANION GAP 4 mmol/L (8-16); CALCIUM, TOTAL 8.6 mg/dL (8.8-10.5); CARBON DIOXIDE 30 mmol/L (22-29); CHLORIDE 102 mmol/L (98-107); CREATININE 0.86 mg/dL (0.60-1.30); GLOMERULAR FILTR. RATE CALC > 60 mL/min (>60); GLUCOSE,RANDOM 70 mg/dL (70-110); POTASSIUM 3.9 mmol/L (3.5-5.1); SODIUM SERUM 136 mmol/L (136-145); UREA NITROGEN, BLOOD 12 mg/dL (7-18)
[2024-12-04 19:13] LABS: ALCOHOL, BLOOD (SERUM) < 3 mg/dL (0-10)
[2024-12-04 22:28] VITALS: BP 133/77; PULSE 80; RESP 18; O2SAT 98
== END 2024-12-04 22:37 ==
LOC: EMS 17:00
DX: F20.9 Schizophrenia, unspecified (principal); K21.9 Gastro-esophageal reflux disease without esophagitis; I12.9 Hypertensive chronic kidney disease with stage 1 through stage 4 chronic kidney disease, or unspecified chronic kidney disease; F10.20 Alcohol dependence, uncomplicated; F17.210 Nicotine dependence, cigarettes, uncomplicated; N18.9 Chronic kidney disease, unspecified; Z79.82 Long term (current) use of aspirin; Z79.899 Other long term (current) drug therapy
CPT/HCPCS: 80048; 85025; 36415; 99285; G0480

== ENCOUNTER 2025-01-24 17:04 | Inpatient (IN) | payer MEDICARE, OTHER ==
[~2025-01-24] VITALS: Ht 180.3 cm; Wt 91.0 kg
[2025-01-24 19:51] LABS: BASOPHILS % (AUTO) 0.5 % (0.0-2.0); EOSINOPHILS % (AUTO) 0.5 % (1.0-6.0); HEMATOCRIT 39.5 % (41-53); HEMOGLOBIN 12.8 g/dL (13.5-17.5); LYMPHOCYTES # (AUTO) 2.3 K/uL (1.0-4.8); LYMPHOCYTES % (AUTO) 27.5 % (22.0-44.0); MEAN CORPUSCULAR HGB CONC 32.5 G/dL (31.0-37.0); MEAN CORPUSCULAR VOLUME 89 fL (80-100); MONOCYTES # (AUTO) 0.7 K/uL (0.1-1.0); MONOCYTES % (AUTO) 8.3 % (2.0-9.0); NEUTROPHILS # (AUTO) 5.3 K/uL (1.8-7.7); NEUTROPHILS % (AUTO) 63.2 % (40.0-70.0); PLATELET COUNT (AUTO) 368 K/uL (150-450); RED BLOOD CELL COUNT(AUTO) 4.41 MIL/uL (4.50-5.90); WHITE BLOOD COUNT (AUTO) 8.4 K/uL (4.5-11.0)
[2025-01-24] MEDS ORDERED: CARV6.2534 PO (19:55)
[2025-01-24] MEDS ORDERED: FLUT16H NASAL (19:55)
[2025-01-24] MEDS ORDERED: AMLO5TAB66 PO (19:55)
[2025-01-24] MEDS ORDERED: LORA10TA7 PO (19:55)
[2025-01-24] MEDS ORDERED: FERR325T27 PO (19:55)
[2025-01-24] MEDS ORDERED: TRAZ150T80 PO (19:55)
[2025-01-24] MEDS ORDERED: CARB1TAB38 PO (19:55)
[2025-01-24 20:02] LABS: ANION GAP 21 mmol/L (8-16); CALCIUM, TOTAL 8.8 mg/dL (8.8-10.5); CARBON DIOXIDE 18 mmol/L (22-29); CHLORIDE 101 mmol/L (98-107); CREATININE 1.26 mg/dL (0.60-1.30); GLOMERULAR FILTR. RATE CALC > 60 mL/min (>60); GLUCOSE,RANDOM 127 mg/dL (70-110); POTASSIUM 3.3 mmol/L (3.5-5.1); SODIUM SERUM 139 mmol/L (136-145); UREA NITROGEN, BLOOD 14 mg/dL (7-18)
[2025-01-24 20:04] LABS: ALCOHOL, BLOOD (SERUM) < 3 mg/dL (0-10)
[2025-01-24 20:13] LABS: TROPONIN I-HIGH SENSITIVITY 497 ng/L (<76)
[2025-01-24 20:42] LABS: APPEARANCE,URINE CLEAR (CLEAR); BILIRUBIN,URINE NEGATIVE (NEGATIVE); COLOR,URINE LIGHT YELLOW (YELLOW); GLUCOSE, URINE (UA) NEGATIVE (NEGATIVE); LEUKOCYTE ESTERASE ,URINE NEGATIVE (NEGATIVE); NITRATE,URINE NEGATIVE (NEGATIVE); OCCULT BLOOD,URINE SMALL (NEGATIVE); PH,URINE 5.5 (5.0-8.0); PROTEIN,URINE 30-70 mg/dL (NEGATIVE); SPECIFIC GRAVITIY, URINE 1.015 (1.003-1.030); UROBILINOGEN,URINE <=1.0 mg/dL (<=1.0)
[2025-01-24 20:48] LABS: ALCOHOL, URINE DRUG SCREEN NEGATIVE (NEGATIVE); AMPHET/METH SCREEN,URINE NEGATIVE (NEGATIVE); BARBITURATE SCREEN, URINE NEGATIVE (NEGATIVE); BENZODIAZEPINES SCREEN,URINE NEGATIVE (NEGATIVE); CANNABINOID SCREEN,URINE NEGATIVE (NEGATIVE); COCAINE SCREEN,URINE NEGATIVE (NEGATIVE); METHADONE SCREEN, URINE NEGATIVE (NEGATIVE); OPIATE SCREEN,URINE NEGATIVE (NEGATIVE); PHENCYCLIDINE SCREEN,URINE NEGATIVE (NEGATIVE)
[2025-01-24] MEDS: LevETIRAcetam 1,000 MG in DEXTROSE 5%-WATER 100 ML IV ONE (20:48)
[2025-01-24 20:56] LABS: BACTERIA,URINE Rare /HPF (None Seen); RBC,URINE 0-2 /HPF (0-2); SQUAMOUS EPITHELIAL CELL,UR Rare /LPF (None Seen); WBC,URINE 0-2 /HPF (0-5)
[2025-01-24] MEDS: ASPIRIN 325 MG TABLET PO ONE (20:58)
[2025-01-24] MEDS: ACETAMINOPHEN 500 MG TABLET PO ONE (21:16)
[2025-01-24 21:22] LABS: PH,URINE DRUG SCREEN 5.5 (5.0-8.0)
[2025-01-24] MEDS ORDERED: ONDANSETRON HCL 4 MG/2 ML VIAL IVP PRN (21:45)
[2025-01-24 21:55] LABS: TROPONIN I-HIGH SENSITIVITY 561 ng/L (<76)
[2025-01-24] MEDS: RINGERS SOLUTION,LACTATED 1,000 ML IV SCH (22:21)
[2025-01-24] MEDS: POTASSIUM CHLORIDE 10 MEQ ER TABLET PO ONE (22:21)
[2025-01-25] MEDS: HEPARIN SODIUM,PORCINE 5,000 UNITS/ML VIAL SQ SCH
[2025-01-25 01:59] LABS: INFLUENZA A-RTPCR,COMBO NEGATIVE (NEGATIVE); INFLUENZA B-RTPCR,COMBO NEGATIVE (NEGATIVE); RESPIRATORY SYNCYTIAL VRS-PCR NEGATIVE (NEGATIVE); SARS COVID19 RTPCR, COMBO NEGATIVE (NEGATIVE)
[2025-01-25 02:40] LABS: TROPONIN I-HIGH SENSITIVITY 577 ng/L (<76)
[2025-01-25] MEDS: ACETAMINOPHEN 325 MG TABLET PO PRN (03:20)
[2025-01-25 04:00] VITALS: BP 135/91; PULSE 80; RESP 19; TEMP 98.1; O2SAT 99
[2025-01-25 06:52] LABS: BASOPHILS % (AUTO) 0.9 % (0.0-2.0); EOSINOPHILS % (AUTO) 2.1 % (1.0-6.0); HEMOGLOBIN 12.5 g/dL (13.5-17.5); LYMPHOCYTES # (AUTO) 1.1 K/uL (1.0-4.8); LYMPHOCYTES % (AUTO) 20.6 % (22.0-44.0); MEAN CORPUSCULAR HGB CONC 32.9 G/dL (31.0-37.0); MEAN CORPUSCULAR VOLUME 88 fL (80-100); MONOCYTES # (AUTO) 0.6 K/uL (0.1-1.0); MONOCYTES % (AUTO) 10.2 % (2.0-9.0); NEUTROPHILS # (AUTO) 3.7 K/uL (1.8-7.7); NEUTROPHILS % (AUTO) 66.2 % (40.0-70.0); PLATELET COUNT (AUTO) 266 K/uL (150-450); RED BLOOD CELL COUNT(AUTO) 4.32 MIL/uL (4.50-5.90); RED CELL DISTRIBUTION WIDTH 17.7 % (11.5-14.5); WHITE BLOOD COUNT (AUTO) 5.6 K/uL (4.5-11.0)
[2025-01-25 07:07] LABS: ANION GAP 8 mmol/L (8-16); CALCIUM, TOTAL 8.5 mg/dL (8.8-10.5); CARBON DIOXIDE 26 mmol/L (22-29); CHLORIDE 102 mmol/L (98-107); CREATININE 0.79 mg/dL (0.60-1.30); GLOMERULAR FILTR. RATE CALC > 60 mL/min (>60); GLUCOSE,RANDOM 83 mg/dL (70-110); POTASSIUM 3.3 mmol/L (3.5-5.1); SODIUM SERUM 136 mmol/L (136-145); UREA NITROGEN, BLOOD 10 mg/dL (7-18)
[2025-01-25 07:12] VITALS: BP 131/79; PULSE 88; RESP 18; TEMP 97.9; O2SAT 99
[2025-01-25 07:15] LABS: TROPONIN I-HIGH SENSITIVITY 637 ng/L (<76)
[2025-01-25] MEDS ORDERED: POTASSIUM CHL 10 MEQ/WATER 50 ML IV PRN (08:30)
[2025-01-25] MEDS ORDERED: MAGNESIUM SULFATE 4 GM/WATER 100 ML IV PRN (08:30)
[2025-01-25] MEDS ORDERED: MAGNESIUM SULFATE 2 GM/WATER 50 ML IV PRN (08:30)
[2025-01-25] MEDS: AmLODIPine BESYLATE 5 MG TABLET PO SCH (08:47)
[2025-01-25] MEDS: CARVEDILOL 6.25 MG TABLET PO SCH (08:47)
[2025-01-25] MEDS: FERROUS SULFATE 325 MG EC TABLET PO SCH (08:49)
[2025-01-25] MEDS: TAMSULOSIN HCL 0.4 MG CAPSULE PO SCH (08:49)
[2025-01-25] MEDS: PANTOPRAZOLE SODIUM 40 MG DR TABLET PO SCH (08:49)
[2025-01-25] MEDS: SPIRONOLACTONE 25 MG TABLET PO SCH (08:50)
[2025-01-25] MEDS: CARBIDOPA/LEVODOPA 25-250 MG TABLET PO SCH (08:50)
[2025-01-25] MEDS: LevETIRAcetam 250 MG TABLET PO SCH (08:50)
[2025-01-25] MEDS: LORATADINE 10 MG TABLET PO SCH (08:51)
[2025-01-25 11:18] LABS: ALBUMIN 2.7 g/dL (3.4-5.0)
[2025-01-25 11:24] VITALS: BP 130/89; PULSE 80; RESP 20; TEMP 98.2; O2SAT 97
[2025-01-25] MEDS: POTASSIUM CHLORIDE 20 MEQ ER TABLET PO PRN (13:12)
[2025-01-25] MEDS: MAGNESIUM OXIDE 400 MG TABLET PO PRN (13:12)
[2025-01-25 13:43] LABS: POTASSIUM 3.5 mmol/L (3.5-5.1)
[2025-01-25 15:56] VITALS: BP 119/63; PULSE 83; RESP 18; TEMP 97.4; O2SAT 100
[2025-01-25] MEDS: TraZODone HCL 150 MG TABLET PO SCH (20:06)
[2025-01-25] MEDS: ATORVASTATIN CALCIUM 20 MG TABLET PO SCH (20:06)
[2025-01-25 20:35] VITALS: BP 131/60; PULSE 90; RESP 18; TEMP 98.5; O2SAT 98
[2025-01-25 23:35] VITALS: BP 125/81; PULSE 79; RESP 18; TEMP 98; O2SAT 98
[2025-01-26] VITALS (11 sets, daily range): BP systolic 102–150; BP diastolic 71–99; PULSE 71–110; RESP 17–20; TEMP 97.8–98.4; O2SAT 0–100
[2025-01-26 06:56] LABS: BASOPHILS % (AUTO) 0.8 % (0.0-2.0); EOSINOPHILS % (AUTO) 3.3 % (1.0-6.0); HEMOGLOBIN 12.9 g/dL (13.5-17.5); LYMPHOCYTES # (AUTO) 1.3 K/uL (1.0-4.8); LYMPHOCYTES % (AUTO) 33.9 % (22.0-44.0); MEAN CORPUSCULAR HGB CONC 33.2 G/dL (31.0-37.0); MEAN CORPUSCULAR VOLUME 87 fL (80-100); MONOCYTES # (AUTO) 0.4 K/uL (0.1-1.0); MONOCYTES % (AUTO) 10.8 % (2.0-9.0); NEUTROPHILS % (AUTO) 51.2 % (40.0-70.0); PLATELET COUNT (AUTO) 308 K/uL (150-450); RED BLOOD CELL COUNT(AUTO) 4.46 MIL/uL (4.50-5.90); RED CELL DISTRIBUTION WIDTH 17.3 % (11.5-14.5); WHITE BLOOD COUNT (AUTO) 3.8 K/uL (4.5-11.0)
[2025-01-26 07:31] LABS: ANION GAP 9 mmol/L (8-16); CALCIUM, TOTAL 9.2 mg/dL (8.8-10.5); CARBON DIOXIDE 27 mmol/L (22-29); CHLORIDE 99 mmol/L (98-107); CREATININE 0.71 mg/dL (0.60-1.30); GLOMERULAR FILTR. RATE CALC > 60 mL/min (>60); GLUCOSE,RANDOM 104 mg/dL (70-110); POTASSIUM 3.8 mmol/L (3.5-5.1); SODIUM SERUM 135 mmol/L (136-145); UREA NITROGEN, BLOOD 8 mg/dL (7-18)
[2025-01-26 07:35] LABS: CREATINE KINASE, TOTAL ONLY 5350 U/L (39-308)
[2025-01-26 07:36] LABS: TROPONIN I-HIGH SENSITIVITY 558 ng/L (<76)
[2025-01-26] MEDS: SODIUM CHLORIDE 0.9% 1,000 ML IV SCH (12:12)
[2025-01-26] MEDS ORDERED: DiphenhydrAMINE HCL 50 MG/ML VIAL ONE (16:28)
[2025-01-26] MEDS ORDERED: LORazepam 2 MG/ML VIAL ONE (16:28)
[2025-01-26] MEDS ORDERED: HALOPERIDOL LACTATE 5 MG/ML VIAL ONE (16:29)
[2025-01-26] MEDS: DiphenhydrAMINE HCL 50 MG/ML VIAL IM ONE (16:34)
[2025-01-26] MEDS: LORazepam 2 MG/ML VIAL IM ONE (16:35)
[2025-01-26] MEDS: HALOPERIDOL LACTATE 5 MG/ML VIAL IM ONE (16:35)
[2025-01-26] MEDS ORDERED: LORazepam 2 MG TABLET PO PRN (16:45)
[2025-01-26] MEDS: 1: MAGNESIUM SULFATE 2 GM, MVI, ADULT NO.1 WITH VIT K 10 ML, THIAMINE 100 MG, FOLIC ACID IV SCH (18:29)
[2025-01-27] VITALS (10 sets, daily range): BP systolic 118–140; BP diastolic 56–91; PULSE 70–120; RESP 16–19; TEMP 97.4–98.6; O2SAT 95–100
[2025-01-27 07:16] LABS: ANION GAP 6 mmol/L (8-16); CALCIUM, TOTAL 8.8 mg/dL (8.8-10.5); CARBON DIOXIDE 29 mmol/L (22-29); CHLORIDE 100 mmol/L (98-107); CREATININE 0.71 mg/dL (0.60-1.30); GLOMERULAR FILTR. RATE CALC > 60 mL/min (>60); GLUCOSE,RANDOM 88 mg/dL (70-110); POTASSIUM 3.7 mmol/L (3.5-5.1); SODIUM SERUM 135 mmol/L (136-145); UREA NITROGEN, BLOOD 8 mg/dL (7-18)
[2025-01-27 07:17] LABS: CREATINE KINASE, TOTAL ONLY 6060 U/L (39-308)
[2025-01-27] MEDS: LORazepam 2 MG TABLET PO SCH (08:30)
[2025-01-27] MEDS ORDERED: SODIUM CHLORIDE 0.9% 1,000 ML ONE (13:43)
[2025-01-27] MEDS: LevETIRAcetam 500 MG TABLET PO SCH (21:17)
[2025-01-27] MEDS: CARBIDOPA/LEVODOPA 25-100 MG ER TABLET PO SCH (21:18)
[2025-01-27] MEDS ORDERED: MAGNESIUM HYDROXIDE SUSPENSION 30 ML UDCUP PO PRN (22:45)
[2025-01-28] VITALS (8 sets, daily range): BP systolic 108–134; BP diastolic 72–85; PULSE 75–97; RESP 18–20; TEMP 97.4–98.8; O2SAT 96–99
[2025-01-28] MEDS: DOCUSATE SODIUM 100 MG CAPSULE PO SCH (08:59)
[2025-01-28] MEDS ORDERED: SODIUM CHLORIDE 0.9% 1,000 ML ONE (17:16)
[2025-01-28] MEDS: LORazepam 2 MG/ML VIAL IM PRN (18:41)
[2025-01-28] MEDS: LORazepam 2 MG TABLET PO PRN (21:31)
[2025-01-29] VITALS (8 sets, daily range): BP systolic 116–125; BP diastolic 78–89; PULSE 84–94; RESP 18–24; TEMP 97.7–98; O2SAT 97–100
[2025-01-29] MEDS ORDERED: LORazepam 1 MG TABLET PO PRN (07:00)
[2025-01-29] MEDS: LORazepam 1 MG TABLET PO SCH (09:59)
[2025-01-29] MEDS ORDERED: SODIUM CHLORIDE 0.9% 1,000 ML ONE (13:14)
[2025-01-29 18:45] LABS: BASOPHILS % (AUTO) 0.2 % (0.0-2.0); EOSINOPHILS % (AUTO) 5.6 % (1.0-6.0); HEMATOCRIT 37.3 % (41-53); HEMOGLOBIN 12.2 g/dL (13.5-17.5); LYMPHOCYTES % (AUTO) 28.6 % (22.0-44.0); MEAN CORPUSCULAR HGB CONC 32.8 G/dL (31.0-37.0); MEAN CORPUSCULAR VOLUME 88 fL (80-100); MONOCYTES # (AUTO) 0.5 K/uL (0.1-1.0); MONOCYTES % (AUTO) 13.7 % (2.0-9.0); NEUTROPHILS # (AUTO) 1.9 K/uL (1.8-7.7); NEUTROPHILS % (AUTO) 51.9 % (40.0-70.0); PLATELET COUNT (AUTO) 294 K/uL (150-450); RED BLOOD CELL COUNT(AUTO) 4.23 MIL/uL (4.50-5.90); WHITE BLOOD COUNT (AUTO) 3.7 K/uL (4.5-11.0)
[2025-01-29 18:55] LABS: ANION GAP 9 mmol/L (8-16); CALCIUM, TOTAL 8.7 mg/dL (8.8-10.5); CARBON DIOXIDE 27 mmol/L (22-29); CHLORIDE 98 mmol/L (98-107); CREATININE 0.76 mg/dL (0.60-1.30); GLOMERULAR FILTR. RATE CALC > 60 mL/min (>60); GLUCOSE,RANDOM 143 mg/dL (70-110); POTASSIUM 4.2 mmol/L (3.5-5.1); SODIUM SERUM 134 mmol/L (136-145); UREA NITROGEN, BLOOD 14 mg/dL (7-18)
[2025-01-29 19:09] LABS: ALBUMIN 2.7 g/dL (3.4-5.0); ALKALINE PHOSPHATASE 60 U/L (46-116); ASPARTATE AMINOTRANSFERASE 125 U/L (15-37); BILIRUBIN,TOTAL 0.3 mg/dL (0.1-1.0); TOTAL PROTEIN, SERUM 7.2 g/dL (6.4-8.2)
[2025-01-29 19:13] LABS: ALANINE AMINOTRANSFERASE 5 U/L (12-78); CREATINE KINASE, TOTAL ONLY 2911 U/L (39-308)
[2025-01-30] VITALS: BP 126/81; PULSE 80; RESP 18; RESP 19; TEMP 98.1; O2SAT 98
[2025-01-30] MEDS ORDERED: LORazepam 1 MG TABLET PO PRN (07:00)
[2025-01-30 07:56] VITALS: BP 144/103; PULSE 66; RESP 19; TEMP 97.9; O2SAT 98
[2025-01-30 08:00] VITALS: BP 144/103; PULSE 66; RESP 19; TEMP 97.9; O2SAT 98
[2025-01-30 12:00] VITALS: BP 117/84; PULSE 79; RESP 19; TEMP 98.1; O2SAT 98
[2025-01-30 12:45] LABS: BASOPHILS % (AUTO) 0.3 % (0.0-2.0); EOSINOPHILS % (AUTO) 5.5 % (1.0-6.0); HEMATOCRIT 35.8 % (41-53); HEMOGLOBIN 11.8 g/dL (13.5-17.5); MEAN CORPUSCULAR HEMOGLOBIN 28.8 pg (26.0-34.0); MEAN CORPUSCULAR VOLUME 87 fL (80-100); MONOCYTES # (AUTO) 0.5 K/uL (0.1-1.0); MONOCYTES % (AUTO) 12.9 % (2.0-9.0); NEUTROPHILS # (AUTO) 2.1 K/uL (1.8-7.7); NEUTROPHILS % (AUTO) 55.3 % (40.0-70.0); PLATELET COUNT (AUTO) 313 K/uL (150-450); RED BLOOD CELL COUNT(AUTO) 4.11 MIL/uL (4.50-5.90); RED CELL DISTRIBUTION WIDTH 17.8 % (11.5-14.5); WHITE BLOOD COUNT (AUTO) 3.7 K/uL (4.5-11.0)
[2025-01-30 12:55] LABS: ANION GAP 7 mmol/L (8-16); CARBON DIOXIDE 26 mmol/L (22-29); CHLORIDE 101 mmol/L (98-107); CREATININE 0.63 mg/dL (0.60-1.30); GLOMERULAR FILTR. RATE CALC > 60 mL/min (>60); GLUCOSE,RANDOM 88 mg/dL (70-110); POTASSIUM 4.3 mmol/L (3.5-5.1); SODIUM SERUM 134 mmol/L (136-145); UREA NITROGEN, BLOOD 10 mg/dL (7-18)
[2025-01-30 12:59] LABS: ALANINE AMINOTRANSFERASE 9 U/L (12-78); ALBUMIN 2.8 g/dL (3.4-5.0); ALKALINE PHOSPHATASE 62 U/L (46-116); ASPARTATE AMINOTRANSFERASE 107 U/L (15-37); BILIRUBIN,TOTAL 0.3 mg/dL (0.1-1.0)
[2025-01-30] MEDS ORDERED: HEPA500018 SQ (17:53)
[2025-01-30] MEDS ORDERED: LEVE-71 PO (17:54)
[2025-01-30] MEDS ORDERED: ACET-2247 PO (17:56)
[2025-01-30] MEDS ORDERED: MAGN-169 PO (17:57)
== END 2025-01-30 18:00 | DRG 100 ==
LOC: EMS 17:04 → EDH 21:44 → 5S 01-25 03:05 → 5N 01-27 17:14
PROVIDERS: ADMIT Internal Medicine; ATTEND Internal Medicine
DX: G40.909 Epilepsy, unspecified, not intractable, without status epilepticus (principal); I50.43 Acute on chronic combined systolic (congestive) and diastolic (congestive) heart failure; I13.0 Hypertensive heart and chronic kidney disease with heart failure and stage 1 through stage 4 chronic kidney disease, or unspecified chronic kidney disease; I47.20 Ventricular tachycardia, unspecified; M62.82 Rhabdomyolysis; F10.939 Alcohol use, unspecified with withdrawal, unspecified; S05.41XA Penetrating wound of orbit with or without foreign body, right eye, initial encounter; Z20.822 Contact with and (suspected) exposure to COVID-19; E83.42 Hypomagnesemia; E87.6 Hypokalemia; S02.2XXA Fracture of nasal bones, initial encounter for closed fracture; G20.A1 Parkinson's disease without dyskinesia, without mention of fluctuations; Y90.0 Blood alcohol level of less than 20 mg/100 ml; F17.200 Nicotine dependence, unspecified, uncomplicated; G93.89 Other specified disorders of brain; N18.9 Chronic kidney disease, unspecified; Z87.820 Personal history of traumatic brain injury; Z87.828 Personal history of other (healed) physical injury and trauma; K21.9 Gastro-esophageal reflux disease without esophagitis; W18.39XA Other fall on same level, initial encounter; Y93.89 Activity, other specified; Y92.89 Other specified places as the place of occurrence of the external cause; Y99.8 Other external cause status
CPT/HCPCS: 0241U; 70150; 70450; 70486; 71045; 72220; 80048; 80053; 80307; 81001; 82040; 82550; 83735; 83880; 84132; 84484; 85025; 93005; 93306; 97116; 97162; 97166; 97530; 97535; 99285; G0378; G0480; J0712; J1200; J1630; J1644; J2060; J3411; J3475; J3490; J7030; J7060; J7120; 36415-L1; 36415-TC